=== PATIENT | male | born 1945 | race Caucasian/White ===

== ENCOUNTER → 2021-05-14 | Outpatient (CLI) | payer OTHER ==
[~2021-05-14] VITALS: Ht 170.2 cm; Wt 74.4 kg
--- NOTE | 2021-05-14 14:01 | EXE ---
[place] [address] STRESS ECHOCARDIOGRAM Name: DAREK OSORIO Room: [facility]#: [id number] Admission: 05/14/21 Attend Phys: Tae Bradshaw MD Discharge: Date of : 49 Date of Service: 05/14/21 1401 Report #: [id number] THIS REPORT FOR: cc: Gerald Minor MD, Paul MD Holkins,Suresh Drake MD [facility] ~ APPROVED REPORT Study performed: 05/14/2021 12:19:33 Exam: Dobutamine Stress Echo Indication: CAD Patient Location: Out-Patient Stress Nurse: Veronica Chiang RN Supervising Physician: Venkatesh Van MD Ht: 5 ft 7 in HR: 80 bpm BP: 132/52 mmHg Medical History Medical History: CAD s/p CABG Cardiac Risk Factors: Hyperlipidemia, Tobacco History (Current/Recent) Procedure The patient underwent a Pharmacological Stress Test using Dobutamine. Blood pressure, heart rate, and EKG were monitored. An Echocardiogram was performed by fitness technician in four stages in quad fashion. At peak stress, four selected images were obtained and placed side by side with resting images for comparison. Stress Test Details Stress Test: Pharmacological Stress Test using Dobutamine. Reason for pharmacologic stress test: physical limitation. HR Resting HR: 80 bpm Max Heart Rate (APMHR): 146 bpm Max HR Achieved: 130 bpm Target HR (85% APMHR): 124 bpm % of APMHR: 89 Recovery HR: 97 bpm HR response to stress: Normal HR response to stress BP Resting BP: 132/52 [place] [address] STRESS ECHOCARDIOGRAM Name: JODAREK Ana Room: [facility]#: [id number] Admission: 05/14/21 Attend Phys: Tae Bradshaw MD Discharge: Date of : 49 Date of Service: 05/14/21 1401 Report #: [id number] Max BP: 123/48 mmHg Recovery BP: 134/39 mmHg BP response to stress: Normal blood pressure response to stress. ECG Resting ECG: sinus rhythm, leftward QRS axis, minor nonspecific st- t changes Stress ECG: no ischemic st-t changes Arrhythmia: rare pac's Recovery ECG: no ischemic st-t changes Recovery Arrhythmia: occasional pac's with a rare pvc Clinical Reason for Termination: Completed protocol Pre-Stress Echo The resting Echocardiogram showed normal left ventricular contractility with an estimated Ejection Fraction of about 60-65%. Normal wall motion in all segments on baseline images. Post-Stress Echo The stress Echocardiogram showed normal left ventricular contractility with an estimated Ejection Fraction of about >70%. Normal augmentation of wall motion in all segments on post stress images. Conclusion Clinical Response: Non-ischemic Exercise Capacity: not assessed Stress ECG Response: Non-ischemic Stress Echo Images: Non-ischemic Other Information Study Quality: Good <ELECTRONICALLY SIGNED> By: Suresh Anaya MD, FACC 05/14/211400 00 00 Suresh Anaya MD, FACC /INF
== END ==
LOC: M.CRD 04-24 13:00
PROVIDERS: ATTEND Internal Medicine Cardiovascular Disease
DX: I25.10 Atherosclerotic heart disease of native coronary artery without angina pectoris (principal)